=== PATIENT | female | born 1990 | race Caucasian/White ===

== ENCOUNTER 2017-01-27 13:26 | Emergency (ER) | payer OTHER ==
[2017-01-27 13:45] VITALS: BMI 23.9
[2017-01-27] MEDS ORDERED: Amoxicillin-Clav 875-125 mg Tab PO STA (14:28)
--- NOTE | 2017-01-27 14:30 | C.PDOC ---
History Of Present Illness 26 yo female come in for evaluation of low grade fever, intermittent headache, nasal congestion, sore throat for past few days. Otherwise, pt denies high fever , denies worse headache of life, neck pain, drooling, dysphagia, dyspnea, cough , abd. pain, V/D, back pain, UTi sx, denies rash, recent travel or known sick contact. Ambulate to ED for evaluation, not in any apparent distress. Time Seen by Provider: 01/27/17 14:02 Chief Complaint (Nursing): Flu-like Symptoms History Per: Patient Onset/Duration Of Symptoms: Gradual Past Medical History Reviewed: Historical Data, Nursing Documentation, Vital Signs Vital Signs: Last Vital Signs Temp 99.3 F 01/27/17 13:45 Pulse 104 H 01/27/17 13:45 Resp 20 01/27/17 13:45 BP 103/72 01/27/17 13:45 Pulse Ox 96 01/27/17 13:45 - Medical History PMH: No Chronic Diseases Surgical History: No Surg Hx Family History: States: No Known Family Hx - Social History Hx Alcohol Use: Yes Hx Substance Use: No - Immunization History Hx Tetanus Toxoid Vaccination: No Hx Influenza Vaccination: No Hx Pneumococcal Vaccination: No Review Of Systems Except As Marked, All Systems Reviewed And Found Negative. Constitutional: Positive for: Fever. Negative for: Chills, Malaise ENT: Positive for: Nose Discharge, Nose Congestion, Throat Pain, Throat Swelling. Negative for: Ear Discharge Cardiovascular: Negative for: Chest Pain Respiratory: Negative for: Cough, Shortness of Breath, Wheezing Gastrointestinal: Negative for: Nausea, Vomiting, Abdominal Pain, Diarrhea Genitourinary: Negative for: Dysuria, Frequency Musculoskeletal: Negative for: Neck Pain, Back Pain Skin: Negative for: Rash Neurological: Negative for: Weakness, Numbness, Altered Mental Status, Headache , Dizziness Physical Exam - Physical Exam Appears: Well, Non-toxic, No Acute Distress Skin: Normal Color, Warm, Dry, No Rash Eye(s): bilateral: PERRL Ear(s): Left: TM Erythema Nose: Discharge (scant clear discharges B/L) Oral Mucosa: Moist, No Drooling Throat: Erythema (moderate B/L), No Exudate, No Drooling Neck: Supple Cardiovascular: Rhythm Regular Respiratory: No Decreased Breath Sounds, No Accessory Muscle Use, No Rales, No Rhonchi, No Stridor, No Wheezing Gastrointestinal/Abdominal: Soft, No Tenderness, No Distention, No Guarding Back: No CVA Tenderness Extremity: No Pedal Edema Neurological/Psych: Oriented x3, Normal Speech ED Course And Treatment O2 Sat by Pulse Oximetry: 96 Pulse Ox Interpretation: Normal Progress Note: On re-evaluation, pt is afebrile, hemodynamicaly stable. NOn- toxic. Tolerate Po well in ED. Pulse Ox 96% RA. neck: (-) meningeal sign. ENT : exam c/w acute pharyngitis. uvula midline, no edema. Lungs: CTA B/L, BS equal B/L. Abd: benign. back: (-) CVA tenderness. Neurologicaly intact. Pt has clinical fndings c/w acute pharyngitis. Pt advised and ref. to F/u with PMD in 2-3 days for re-eavl. return if any new changes. Disposition Counseled Patient/Family Regarding: Diagnosis, Need For Followup, Rx Given - Disposition Referrals: Clinic,Med Surg [Primary Care Provider] - Disposition: HOME/ ROUTINE Disposition Time: 14:29 Condition: STABLE Additional Instructions: Encourage fluids Take medication as prescribed Follow up with PMD in 2-3 days for re-evaluation. Return to ED if any worsening or new changes. Prescriptions: Amoxicillin/Clavulanate [Augmentin 875 MG-125 MG] 1 tab PO BID #14 tab Ibuprofen [Motrin Tab] 600 mg PO Q6 #20 tab Loratadine [Claritin] 10 mg PO DAILY #14 tab Instructions: Pharyngitis (ED) - Clinical Impression Clinical Impression: Pharyngitis
[2017-01-27] MEDS ORDERED: Amoxicillin-Clav 875-125 mg Tab PO ONE (14:37)
[2017-01-27 14:41] VITALS: BP 124/72; PULSE 89; RESP 18; TEMP 98.8; O2SAT 98
== END 2017-01-27 14:50 | disposition home or self-care (01) ==
LOC: C.ER 13:26 → SUPCPDRO 13:26 → C.ER 14:50
DX: J02.9 Acute pharyngitis, unspecified (principal)